=== PATIENT | female | born 1965 | race Caucasian/White ===

== ENCOUNTER → 2024-02-08 15:52 | Outpatient (REF) | payer BC, SELFPAY | LOC: WDC 15:52 | PROVIDERS: ATTENDING PHYSICIAN Obstetrics & Gynecology | DX: Z12.31 Encounter for screening mammogram for malignant neoplasm of breast (principal) | CPT/HCPCS: 77063; 77067 ==

== ENCOUNTER → 2024-03-29 12:41 | Outpatient (REF) | payer SELFPAY | LOC: HWRAD 12:41 | PROVIDERS: ATTENDING PHYSICIAN Nurse Practitioner Family; FAMILY PHYSICIAN Family Medicine | DX: E78.01 Familial hypercholesterolemia (principal) | CPT/HCPCS: 75571 ==

== ENCOUNTER 2024-05-17 20:38 | Emergency (ER) | payer BC, SELFPAY ==
--- NOTE | 2024-05-18 00:28 | ED.SKININJ ---
HPI-Injury
General
Chief Complaint: Skin Surface Trauma
Source: patient
Exam Limitations: none
Time Seen by Provider: 05/18/24 00:16
History of Present Illness-Injury
Is this injury a work related problem?: No
Is pt an associate of [facility]?: No
Initial Injury comments:
This is a 59 year old female that comes in with c/o cut to the left thumb. States that she was cutting a piece of foam and cut her finger. State that it has been more the 5 years since her last Tetanus. Denies any fever, chills, chest pain, SOB, abd
pain. nausea, vomiting, diarrhea, headache, dizziness.
Past History
Past History
ED Past Medical History: NIDDM, Psychiatric (generalized anxiety disorder, Depression) and Other (mild NEVIN; Ovarian cyst. )
ED Past Surgical History: Cholecystectomy
Social History
Tobacco: Non-smoker
Alcohol: Occasional
Drug: None
Personal:
Living: with family
Family History
Family History: Other (reviewed and non-contributory)
Review of Systems
Review of Systems
All Other Systems: ROS reviewed and negative except as documented in HPI and ROS
Constitutional: Reports no symptoms; Denies fever or chills
EENT: Reports no symptoms
Respiratory: Reports no symptoms
Cardiac: Reports no symptoms
ABD/GI: Reports no symptoms
Musculoskeletal: Reports no symptoms
Skin: Reports other (Laceration to the left thumb)
Neurological: Reports no symptoms
Psychiatric: Reports no symptoms
Skin Exam
Laceration
Left Distal Thumb:
Length in cm: 3
Orientation: vertical
Type of Laceration: simple
Any active bleeding?: no active bleeding
Distal skin color and temperature: normal-warm & good color
Normal distal neurovascular exam: Yes
Range of motion: full
Phy Exam
General Physical Exam
General Presentation: well appearing and no apparent distress
General age: appears stated age
General Skin: warm and dry
General Habitus: normal
General Mental: alert
General Hydration: appears well hydrated
Eye Exam
Eye Exam: EOMI
Musculoskeletal Exam
Musculoskeletal Exam: full ROM
Skin Exam
Skin Exam: normal color, warm/dry, no rash, no petechia and laceration (To the tip of the thumb with slight involvement of the nail. Superficial. Negative for any bleeding)
Psychiatric Exam
Psychiatric Exam: normal mood/affect
Course
Vital Signs
Initial and Last Documented VS:
Initial Vital Signs
Temp Pulse Resp Pulse Ox
98.4 F 84 18 99
05/17/24 20:40 05/17/24 20:40 05/17/24 20:40 05/17/24 20:40
Last Documented Vital Signs
Temp Pulse Resp Pulse Ox
98.4 F 84 18 99
05/17/24 20:40 05/17/24 20:40 05/17/24 20:40 05/17/24 20:40
MDM/Problems Addressed
Differential Diagnosis Includes:
Superficial laceration to left thumb
MDM/Problems Addressed:
This is a 59 year old female that cut the left thumb with a knife when cutting foam.
Will glue and steri strip. Will give Adacel and discharge patient home.
Chronic conditions affecting care:
NA
Acute Exacerbation and/or Progression of Chronic Illness:
NA
*Pulse Oximetry
Patient hypoxic: no
*EKG
Interpreted by ED Provider?: NA
Rate: EKG- N/A
*Dining Room Supervisor Interpretation
Rate: Dining Room Supervisor- N/A
*Critical Care Note
Total Time (30-74mins, 75-104mins- exclusive of procedures): Not Applicable
ED Attending Note
-
Portions of this chart may have been created with voice recognition software.� Occasional wrong word or��sound alike� substitutions may have occurred due to the inherent limitations of voice recognition software.
Discharge Plan
Departure
Patient Disposition: Home (Routine Discharge)
Date of Disposition: 05/18/24
Time of Disposition: 00:34
Patient with high blood pressure during this ER visit?: No
Condition: Good
Covid-19: Not Applicable
Discharge Problem:
Laceration of left thumb
Instructions: Laceration Repair With Glue (DC)
Prescriptions:
No Action
fluoxetine 20 MG capsule
20 mg PO DAILY@2100
multivitamin with minerals [Hair,Skin and Nails] 1 EACH tablet
1 ea PO DAILY
atorvastatin 40 MG tablet
40 mg PO QPM Qty: 30 0RF
cyanocobalamin (vitamin B-12) 1,000 MCG tablet
1,000 mcg PO DAILY Qty: 30 0RF
Referrals:
UNKNOWN - PT NOT,INTERVIEWE [Family Provider] -
Activity Restrictions/Additional Instructions:
As discussed, you laceration has been glued and steri strips apply. Please keep this dry for the next 24 hours. Then you may gently wash over this are but do not scrub. Do not pull the steri strips as this will pull off the glue. This should fall
off in about 7 days. You have also been given your Tetanus vaccine. Follow up with the family doctor as needed. IF YOU HAVE ANY REDNESS OR SWELLING OR YOU HAVE ANY OTHER CONCERNS PLEASE RETURN TO THE EMERGENCY ROOM.
Interventions
Interventions:
*Risk Screen - Suicide Last Done: 05/17/24 20:40
*General Assessment Last Done: 05/17/24 20:40
*Neglect/Abuse Screening Last Done: 05/17/24 20:40
*ED COVID-19 Vaccine History Last Done: 05/17/24 20:40
ED-Skin Assessment Last Done: 05/17/24 23:00
Discharge Date and Time
Print Language: ROMANSH
[2024-05-18] MEDS: ADACEL 0.5 ML IM (00:32)
[2024-05-18 00:37] VITALS: BP 112/74
== END 2024-05-18 00:41 | disposition home or self-care (01) ==
LOC: EMR 20:38
PROVIDERS: EMERGENCY PHYSICIAN Emergency Medicine
DX: S61.112A Laceration without foreign body of left thumb with damage to nail, initial encounter (principal); W26.0XXA Contact with knife, initial encounter; E11.9 Type 2 diabetes mellitus without complications; Z23 Encounter for immunization; Z90.49 Acquired absence of other specified parts of digestive tract
CPT/HCPCS: 12002; 90471; 99282; 90715